=== PATIENT | female | born 1930 | race Caucasian/White ===

== ENCOUNTER 2017-06-10 08:58 | Emergency (ER) | payer MEDICARE ==
[2017-06-10] MEDS ORDERED: Labetalol 100 MG/20 ML MDV IVPUSH ONE ×2 (09:08→09:55)
[2017-06-10] MEDS ORDERED: Sodium Chloride 0.9% 10 ML Syringe FLUSH PRN (09:08)
--- NOTE | 2017-06-10 09:50 | CT ---
Head CT Technique: Multiple axial sections through the brain were obtained. Intravenous contrast was not utilized. Comparison: Previous MRI brain of 11/19/[address] exam on 01/12/09. Findings: Large parenchymal hemorrhage is identified within the posterior fossa involving cerebellar hemisphere and extending into the midline of the cerebellum. This hemorrhage measures approximately 3.3 cm x 2.7 cm. Mild amount of surrounding edema is seen. Minimal mass effect is seen upon the fourth ventricle. Ventricles along with basal cisterns and sulci over convexities are mildly prominent. Diminished density is noted within the periventricular and subcortical white matter compatible with small vessel ischemic demyelination change. 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 No other areas of parenchymal hemorrhage is seen. No midline shift is seen. Atherosclerotic calcification is seen within the carotid siphon. No acute calvarial abnormality is seen. 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 Impression: 1. Large parenchymal hemorrhage within the posterior fossa involving the mid and left side of the cerebellum. Findings could represent hemorrhagic infarct although other etiologies are not excluded at this time. MRI would be helpful to further evaluate if clinically needed. 2. Senescent change as noted above. Diagnostic code #5
--- NOTE | 2017-06-10 09:50 | EDM.PDOC ---
ED HPI GENERAL MEDICAL PROBLEM - General Chief Complaint: Neuro Symptoms/Deficits Stated Complaint: [facility] Time Seen by Provider: 06/10/17 09:07 Source of Information: Reports: EMS, Family ( and daughter), RN Notes Reviewed - History of Present Illness INITIAL COMMENTS - FREE TEXT/NARRATIVE: 87-year-old lady has been brought in by [facility] altered mental status, severe headache, nausea vomiting, speech deficit. She is reported to have been in her usual state of alertness, normal speech and walking ability 8: 00 this morning, 1-1/2 hours prior to arrival. She then developed severe headache, nausea vomiting, speech deficit. Due to repetitive vomiting and other symptoms suggestive for acute stroke EMS was called. Did give her Zofran 4 mg IV and route. They state that she was tending to lean to the right. She did not have a focal weakness of her upper extremities. However she did have facial droop on the left. She was able to follow simple commands but not verbalizing in any way that was understandable. Her daughter states that she has history of hypertension, type 2 diabetes on oral medication for that. She may be on a blood thinner, not able to tell me at this time, attempting to get her med list at this time. This was called as a stroke alert prior to patient arrival. I did see patient upon her arrival. - Related Data Allergies Allergy/AdvReac Type Severity Reaction Status Date / Time Sulfa (Sulfonamide Allergy Cannot Verified 06/10/17 09:12 Antibiotics) Remember ED ROS GENERAL - Review of Systems Review Of Systems: See Below Constitutional: Reports: Diaphoresis (Slight). Denies: Fever, Chills HEENT: Denies: Sinus Problem, Throat Pain, Throat Swelling Respiratory: Denies: Shortness of Breath Cardiovascular: Denies: Chest Pain GI/Abdominal: Reports: Nausea, Vomiting (Severe, repetitive). Denies: Abdominal Pain Skin: Reports: Diaphoresis (Mild) Neurological: Reports: Headache, Trouble Speaking, Difficulty Walking (Unable to stand or walk), Weakness (Generalized), Change in Speech, Other (Loss of normal alertness) ED EXAM, NEURO - Physical Exam Exam: See Below Exam Limited By: Other (Patient not able to verbalize) General Appearance: Other (Patient is awake, moderate distress, vomiting on arrival, she does have altered mental status, tends to stare off to the right very limited response to any type of question. It appears that she does attempt to answer but unable to understand anything that she does try to say) Eye Exam: Bilateral Eye: PERRL, Other (Eyes are not deviated to the right or to the left) Ears: Normal External Exam Throat/Mouth: Normal Inspection, Other (No apparent injury) Head Exam: Atraumatic. 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 No: Oriented x 3 EKG INTERPRETATION EKG Date: 06/10/17 Rhythm: NSR [place]: Normal P-Wave: Present QRS: Other (Q waves V2 and V3 T-wave inversion V4, V5 and V6) ST-T: Other (Slight ST elevation anterior leads.) Course - Vital Signs Last Recorded V/S: Last Vital Signs Temp 98.1 F 06/10/17 09:05 Pulse 80 06/10/17 10:05 Resp 16 06/10/17 09:05 BP 174/103 H 06/10/17 10:05 Pulse Ox 87 L 06/10/17 09:05 - Orders/Labs/Meds Orders: Active Orders 24 hr Category Date Time Status EKG 12 Lead [EKG Documentation Completion] [RC] STAT Care 06/10/17 09:07 Active Peripheral IV Care [RC] . DIRECTED Care 06/10/17 09:08 Active Peripheral IV Insertion Adult [OM.PC] Stat Oth 06/10/17 09:07 Ordered Labs: Laboratory Tests 06/10/17 06/10/17 06/10/17 Range/Units 09:12 09:12 09:12 WBC 11.32 H (3.98-10.04) K/mm3 RBC 5.10 (3.98-5.22) M/mm3 Hgb 15.0 (11.2-15.7) gm/L Hct 47.1 H (34.1-44.9) % MCV 92.4 (79.4-94.8) fl MCH 29.4 (25.6-32.2) pg MCHC 31.8 L (32.2-35.5) g/dl RDW Std Deviation 47.5 H (36.4-46.3) fL Plt Count 166 L (182-369) K/mm3 MPV 12.0 (9.4-12.3) fl Neut % (Auto) 53.2 (34.0-71.1) % Lymph % (Auto) 32.2 (19.3-51.7) % Wallace % (Auto) 11.9 (4.7-12.5) % Eos % (Auto) 1.9 (0.7-5.8) Baso % (Auto) 0.6 (0.1-1.2) % Neut # (Auto) 6.02 (1.56-6.13) K/mm3 Lymph # (Auto) 3.64 (1.18-3.74) K/mm3 Wallace # (Auto) 1.35 H (0.24-0.36) K/mm3 Eos # (Auto) 0.22 (0.04-0.36) K/mm3 Baso # (Auto) 0.07 (0.01-0.08) K/mm3 Sodium 143 (136-145) mEq/L Potassium 3.1 L (3.5-5.1) mEq/L Chloride 104 (98-107) mEq/L Carbon Dioxide 26 (21-32) mEq/L Anion Gap 16.1 H (5-15) BUN 14 (7-18) mg/dL Creatinine 1.1 H (0.55-1.02) mg/dL Est Cr Clr Drug Dosing TNP Estimated GFR (MDRD) 47 (>60) mL/min BUN/Creatinine Ratio 12.7 L (14-18) Glucose 200 H (83-115) mg/dL POC Glucose 195 H (83-110) mg/dL Calcium 9.3 (8.5-10.1) mg/dL Total Bilirubin 0.8 (0.2-1.0) mg/dL AST 17 (15-37) U/L ALT 21 (14-59) U/L Alkaline Phosphatase 37 L (46-116) U/L Troponin I < 0.017 (0.00-0.056) ng/mL Total Protein 8.4 H (6.4-8.2) g/dl Albumin 3.7 (3.4-5.0) g/dl Globulin 4.7 gm/dL Albumin/Globulin Ratio 0.8 L (1-2) Meds: Medications Discontinued Medications Generic Name Dose Route Start Last Admin Trade Name Dunia PRN Reason Stop Dose Admin Labetalol HCl 20 mg 06/10/17 09:08 06/10/17 09:47 Normodyne IVPUSH 06/10/17 09:09 20 mg ONETIME ONE Administration Protocol Labetalol HCl 20 mg 06/10/17 09:55 06/10/17 10:05 Normodyne IVPUSH 06/10/17 09:56 20 mg ONETIME ONE Administration Protocol Lorazepam 0.25 mg 06/10/17 10:00 06/10/17 10:12 Ativan IVPUSH 06/10/17 10:01 0.25 mg ONETIME ONE Administration Lorazepam Confirm 06/10/17 10:06 06/10/17 10:13 Ativan Administered 06/10/17 10:07 Not Given Dose 2 mg .ROUTE .STK-MED ONE Metoclopramide HCl 5 mg 06/10/17 10:00 06/10/17 10:09 Reglan IVPUSH 06/10/17 10:01 5 mg ONETIME ONE Administration Metoclopramide HCl Confirm 06/10/17 10:07 06/10/17 10:13 Reglan Administered 06/10/17 10:08 Not Given Dose 10 mg .ROUTE .STK-MED ONE Sodium Chloride 10 ml 06/10/17 09:08 06/10/17 09:48 Saline Flush FLUSH 10 ml ASDIRECTED PRN Administration Keep Vein Open - Radiology Interpretation Free Text/Narrative:: 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 See radiology report for details. Mental status, condition unchanged from a neurologic standpoint from arrival. Family would like her transferred to [place] due to severity of her hemorrhage, condition. We will be sending her by fixed wing. We did give labetalol 20 mg IV shortly after arrival did bring her blood pressure down to the 200s systolic range, she has received another 20 milligrams IV. - Re-Assessments/Exams Free Text/Narrative Re-Assessment/Exam: 06/10/17 20:10. Her head CT was done very soon after arrival to ED. It did show a moderately large intracerebellar bleed. See radiology report for details. Neurologic status did stay about the same from arrival. She was maintaining a good airway. Blood pressure was quite elevated, about 220 systolic on arrival to ED. We did give labetalol 20 mg IV and that did bring her pressure down to about 200 systolic. Second dose of labetalol was also given. With that her blood pressure came down to about 180 systolic. Family would like to have her transferred to [facility] with consideration that they have a very strong stroke program. It should be noted that her last known time of normal was about 1-1/2-2 hours prior to arrival. Upon first awakening this past morning she was asymptomatic, normal speech pattern, ambulatory without difficulty until acute onset of symptoms around 8:00 this past morning. She was transferred out fixed wing aircraft. Dr. Julius Magallanes accepting Phys. Departure - Departure Time of Disposition: 10:00 Disposition: DC/Tfer to Acute Hospital 02 Clinical Impression: Cerebellar hemorrhage Qualifiers: Intracerebral hemorrhage etiology: nontraumatic Laterality: unspecified laterality Qualified Code(s): I61.4 - Nontraumatic intracerebral hemorrhage in cerebellum - Discharge Information Referrals: Mehdi Collins MD [Primary Care Provider] - Forms: ED Department Discharge - My Orders Last 24 Hours: My Active Orders 06/10/17 09:07 EKG 12 Lead [EKG Documentation Completion] [RC] STAT Peripheral IV Insertion Adult [OM.PC] Stat 06/10/17 09:08 Peripheral IV Care [RC] . DIRECTED - Assessment/Plan Last 24 Hours: My Active Orders 06/10/17 09:07 EKG 12 Lead [EKG Documentation Completion] [RC] STAT Peripheral IV Insertion Adult [OM.PC] Stat 06/10/17 09:08 Peripheral IV Care [RC] . DIRECTED
[2017-06-10] MEDS ORDERED: Metoclopramide 10 MG/2 ML SDV IVPUSH ONE (10:00)
[2017-06-10] MEDS ORDERED: LORazepam 2 MG/ML SDV IVPUSH ONE (10:00)
[2017-06-10] MEDS ORDERED: LORazepam 2 MG/ML SDV ONE (10:06)
[2017-06-10] MEDS ORDERED: Metoclopramide 10 MG/2 ML SDV ONE (10:07)
== END 2017-06-10 10:33 ==
LOC: JD.ED 08:58
DX: I61.4 Nontraumatic intracerebral hemorrhage in cerebellum (principal); Z88.2 Allergy status to sulfonamides; E11.9 Type 2 diabetes mellitus without complications
CPT/HCPCS: 36415; 70450; 80053; 82962; 84484; 85025; 93005; 96374; 96375; 96376; 99285; J2060; J2765; J7050; 93010